=== PATIENT | male | born 1995 | race African-American/Black ===

== ENCOUNTER 2016-08-03 22:14 | Emergency (ER) | payer SELFPAY ==
[~2016-08-03] VITALS: Wt 61.4 kg
[2016-08-03 22:17] VITALS: BP 112/83; TEMP 97.8
[2016-08-03 23:21] VITALS: PULSE 82
== END 2016-08-03 23:21 | disposition home or self-care (01) ==
LOC: COL.ER 22:14
DX: S60.011A Contusion of right thumb without damage to nail, initial encounter (principal); X58.XXXA Exposure to other specified factors, initial encounter; Y93.71 Activity, boxing

== ENCOUNTER 2016-08-07 00:03 | Emergency (ER) | payer SELFPAY ==
[~2016-08-07] VITALS: Ht 167.6 cm; Wt 61.4 kg
[2016-08-07 00:05] VITALS: TEMP 97.6
[2016-08-07 01:22] LABS: PH 5 (5-8); SQUAMOUS EPITHELIAL None Seen /hpf; URINE APPEARANCE Hazy; URINE BACTERIA None Seen /hpf; URINE BILIRUBIN Negative (NEGATIVE); URINE BLOOD 3+ (NEGATIVE); URINE COLOR Yellow; URINE GLUCOSE Negative (NEGATIVE); URINE KETONE Negative (NEGATIVE); URINE RBC 20-50 /hpf; URINE UROBILINOGEN Negative (NEGATIVE); URINE WBC 0-2 /hpf
[2016-08-07 01:34] LABS: BASO % 0.4 % (0.0-2.0); EOS # 0.1 (0.0-0.7); EOS % 1.4 % (0-4.0); GRAN # 3.3 (1.4-6.5); GRAN % 46.3 % (42.2-75.2); HEMATOCRIT 42.8 % (36.0-47.0); HEMOGLOBIN 14.1 g/dl (12.5-16.1); LYMPH # 3.2 (1.2-3.4); LYMPH % 44.3 % (20.0-51.0); MEAN CELL VOLUME 79 fl (80.0-95.0); MEAN CORPUSCULAR HEMOGLOBIN 26 pg (26.0-32.0); MEAN CORPUSCULAR HGB CONC 33 g/dl (33.0-37.0); MEAN PLATELET VOLUME 9.3 fl (7.4-10.4); MONO # 0.5 (0.1-0.6); MONO % 7.5 % (1.7-9.3); PLATELET COUNT 229 K/mm3 (130-400); RED BLOOD COUNT 5.39 M/mm3 (4.20-5.60); REDCELL DISTRIBUTION WIDTH-CV 13.1 % (11.5-14.5); WHITE BLOOD COUNT 7.2 K/mm3 (4.8-10.8)
[2016-08-07 01:44] LABS: ADJUSTED CALCIUM 8.8 mg/dL (8.4-10.2); ALBUMIN 4.1 gm/dL (3.5-5.0); BILIRUBIN,TOTAL 0.8 mg/dL (0.0-1.0); CALCIUM 8.9 mg/dL (8.4-10.2); CREATININE, serum 1.14 mg/dL (0.66-1.25); POTASSIUM 3.8 mmol/L (3.4-5.0); TOTAL PROTEIN 6.7 gm/dL (6.4-8.2)
[2016-08-07 02:27] VITALS: BP 121/72; PULSE 69
== END 2016-08-07 02:28 | disposition home or self-care (01) ==
LOC: COL.ER 00:03
PROVIDERS: Physician Assistant
DX: R31.9 Hematuria, unspecified (principal)
CPT/HCPCS: J0696

== ENCOUNTER 2018-07-03 08:02 | Emergency (ER) | payer SELFPAY ==
[~2018-07-03] VITALS: Ht 167.6 cm; Wt 61.4 kg
[2018-07-03] MEDS ORDERED: ZITHROMAX Z PA250 MG PO (09:19)
[2018-07-03] MEDS ORDERED: PREDNISONE20 MG PO (09:19)
[2018-07-03 09:56] VITALS: TEMP 97.7
[2018-07-03 10:09] VITALS: BP 123/81; PULSE 112
== END 2018-07-03 10:09 | disposition home or self-care (01) ==
LOC: COL.ER 08:02
DX: J45.909 Unspecified asthma, uncomplicated (principal)
CPT/HCPCS: J7512

== ENCOUNTER 2018-07-16 00:44 | Emergency (ER) | payer SELFPAY ==
[~2018-07-16] VITALS: Ht 172.7 cm; Wt 63.6 kg
[~2018-07-16 00:44] MED LIST: PREDNISONE20 MG PO; ZITHROMAX Z PA250 MG PO
[2018-07-16 00:46] VITALS: TEMP 99.1
[2018-07-16] MEDS ORDERED: PROAIR HFA0.09 MG/AC IH ×2 (00:48→03:57)
[2018-07-16 01:11] LABS: HEMATOCRIT 43.5 % (42.0-52.0); MEAN CELL VOLUME 81 fl (80.0-100.0); MEAN CORPUSCULAR HEMOGLOBIN 26 pg (27.0-31.0); MEAN CORPUSCULAR HGB CONC 32 g/dl (33.0-37.0); PLATELET COUNT 312 K/mm3 (130-400); RED BLOOD COUNT 5.38 M/mm3 (4.20-5.60)
[2018-07-16 01:26] LABS: ALANINE AMINOTRANSFERASE 18 U/L (21-72); ALBUMIN 3.9 gm/dL (3.5-5.0); ALKALINE PHOSPHATASE 80 U/L (50-136); ANION GAP 12 mmol/L (7-16); AST,SGOT 22 U/L (15-37); BILIRUBIN,TOTAL 0.3 mg/dL (0.0-1.0); BLOOD UREA NITROGEN 16 mg/dL (9-20); C-REACTIVE PROTEIN 1.1 mg/dL (0.0-0.9); CALCIUM 9.2 mg/dL (8.4-10.2); CARBON DIOXIDE 22 mmol/L (22-30); CHLORIDE 105 mmol/L (98-107); CREATININE, serum 1.11 (0.66-1.25); GLUCOSE 95 mg/dL (74-106); POTASSIUM 4.1 mmol/L (3.4-5.0); SODIUM 140 mmol/L (137-145)
[2018-07-16 01:35] LABS: TROPONIN-I < 0.012 ng/mL (0.000-0.035)
[2018-07-16 01:42] LABS: BASOPHIL 1 % (0-2); EOSINOPHIL 1 % (0-4); HYPOCHROMIA 1+; LYMPHOCYTE 12 % (20.0-51.0); NEUTROPHILS 81 % (42.0-75.2)
[2018-07-16] MEDS ORDERED: LEVAQUIN 750MG750 M1 PO (03:48)
[2018-07-16] MEDS ORDERED: FLAGYL500 MG PO (03:48)
[2018-07-16] MEDS ORDERED: ZOFRAN ODT4 MG PO (03:54)
[2018-07-16 04:26] VITALS: BP 120/80; PULSE 104
== END 2018-07-16 04:40 | disposition home or self-care (01) ==
LOC: COL.ER 00:44
PROVIDERS: Physician Assistant
DX: J45.901 Unspecified asthma with (acute) exacerbation (principal)
CPT/HCPCS: J7512; Q9967

== ENCOUNTER 2018-10-23 13:42 | Emergency (ER) | payer SELFPAY ==
[~2018-10-23] VITALS: Ht 167.6 cm; Wt 61.4 kg
[~2018-10-23 13:42] MED LIST changes: +FLAGYL500 MG PO; +LEVAQUIN 750MG750 M1 PO; +PROAIR HFA0.09 MG/AC IH; +ZOFRAN ODT4 MG PO
[2018-10-23 13:56] VITALS: BP 115/72; TEMP 98.1
[2018-10-23 14:51] VITALS: PULSE 76
== END 2018-10-23 14:54 | disposition home or self-care (01) ==
LOC: COL.ER 13:42
DX: S61.412A Laceration without foreign body of left hand, initial encounter (principal); J45.909 Unspecified asthma, uncomplicated; Z23 Encounter for immunization; F12.90 Cannabis use, unspecified, uncomplicated; W26.0XXA Contact with knife, initial encounter; Y92.009 Unspecified place in unspecified non-institutional (private) residence as the place of occurrence of the external cause

== ENCOUNTER 2018-11-10 13:12 | Emergency (ER) | payer SELFPAY ==
[2018-11-10 13:29] VITALS: BP 127/82; PULSE 79; TEMP 98.1
== END 2018-11-10 13:30 | disposition home or self-care (01) ==
LOC: COL.ER 13:12
DX: S61.412D Laceration without foreign body of left hand, subsequent encounter (principal); X58.XXXD Exposure to other specified factors, subsequent encounter

== ENCOUNTER 2019-01-18 20:55 | Emergency (ER) | payer SELFPAY ==
[~2019-01-18] VITALS: Ht 167.6 cm; Wt 59.1 kg
[2019-01-18 21:08] VITALS: BP 119/62; TEMP 98.2
[2019-01-18 21:32] LABS: BASO % 0.3 % (0.0-2.0); EOS % 0.3 % (0-4.0); GRAN # 6.5 (1.4-6.5); GRAN % 67.6 % (42.2-75.2); HEMATOCRIT 44.4 % (42.0-52.0); HEMOGLOBIN 14.5 g/dl (13.5-18.0); LYMPH # 2.5 (1.2-3.4); LYMPH % 26.3 % (20.0-51.0); MEAN CELL VOLUME 80 fl (80.0-100.0); MEAN CORPUSCULAR HEMOGLOBIN 26 pg (27.0-31.0); MEAN CORPUSCULAR HGB CONC 33 g/dl (33.0-37.0); MEAN PLATELET VOLUME 9.4 fl (7.4-10.4); MONO # 0.5 (0.1-0.6); MONO % 5.2 % (1.7-9.3); PLATELET COUNT 257 K/mm3 (130-400); RED BLOOD COUNT 5.56 M/mm3 (4.20-5.60); REDCELL DISTRIBUTION WIDTH-CV 13.1 % (11.5-14.5)
[2019-01-18] MEDS ORDERED: ZOFRAN ODT4 MG PO ×2 (21:38→22:24)
[2019-01-18] MEDS ORDERED: ASTHMA (21:39)
[2019-01-18 21:44] LABS: CALCIUM 9.7 mg/dL (8.4-10.2); POTASSIUM 3.6 mmol/L (3.4-5.0)
[2019-01-18 22:37] VITALS: PULSE 94
== END 2019-01-18 21:41 | disposition home or self-care (01) ==
LOC: COL.ER 20:55
PROVIDERS: Physician Assistant
DX: A08.4 Viral intestinal infection, unspecified (principal)
CPT/HCPCS: J1885; J2405; J7030

== ENCOUNTER 2019-06-16 16:21 | Emergency (ER) | payer SELFPAY ==
[~2019-06-16] VITALS: Ht 167.6 cm; Wt 61.4 kg
[~2019-06-16 16:21] MED LIST changes: +ASTHMA; +LEVAQUIN 5500 MG/TA1 PO; +PROAIR DIGIHAL90 MCG IH
[2019-06-16 16:25] VITALS: BP 139/93; TEMP 98.2
[2019-06-16 16:43] LABS: COLLECTION METHOD CLEAN CATCH
[2019-06-16 16:52] LABS: MUCOUS Present /lpf; PH 7 (5-8); SQUAMOUS EPITHELIAL None Seen /hpf; URINE APPEARANCE Hazy; URINE BACTERIA Occasional /hpf; URINE BILIRUBIN Negative (NEGATIVE); URINE BLOOD 1+ (NEGATIVE); URINE COLOR Straw; URINE GLUCOSE Negative (NEGATIVE); URINE KETONE Negative (NEGATIVE); URINE LEUKOCYTE ESTERASE 1+ (NEGATIVE); URINE NITRATE Negative (NEGATIVE); URINE PROTEIN(semi-quant) Negative (NEGATIVE); URINE UROBILINOGEN Negative (NEGATIVE)
[2019-06-16 17:15] VITALS: PULSE 87
== END 2019-06-16 17:15 | disposition home or self-care (01) ==
LOC: COL.ER 16:21
PROVIDERS: Physician Assistant
DX: N34.2 Other urethritis (principal); Z20.2 Contact with and (suspected) exposure to infections with a predominantly sexual mode of transmission
CPT/HCPCS: J0696